=== PATIENT | female | born 1965 | race Caucasian/White ===

== ENCOUNTER 2018-08-25 13:30 | Emergency (ER) | payer OTHER | END 2018-08-25 14:06 | disposition home or self-care (01) | LOC: FTE 13:30 | DX: R05 Cough (principal) | CPT/HCPCS: 99283 ==

== ENCOUNTER 2018-08-28 00:23 | Emergency (ER) | payer SELFPAY, OTHER | END 2018-08-28 03:00 | disposition left against medical advice (07) | LOC: FTE 00:23 | DX: Z53.21 Procedure and treatment not carried out due to patient leaving prior to being seen by health care provider (principal) ==